=== PATIENT | male | born 2005 | race Hispanic/Latino ===

== ENCOUNTER 2024-11-09 20:18 | Emergency (ER) | payer OTHER ==
[2024-11-09] MEDS ORDERED: Acetaminophen 500 MG TAB ONE (20:31)
== END 2024-11-09 22:05 ==
LOC: NAV ERS 20:18
DX: S00.83XA Contusion of other part of head, initial encounter (principal); S01.111A Laceration without foreign body of right eyelid and periocular area, initial encounter; J45.909 Unspecified asthma, uncomplicated; Z79.51 Long term (current) use of inhaled steroids; Y04.0XXA Assault by unarmed brawl or fight, initial encounter
CPT/HCPCS: 12011; 70450; 70486